=== PATIENT | male | born 1980 | race African-American/Black ===

== ENCOUNTER 2023-10-12 19:57 | Inpatient (IN) | payer MEDICAID, OTHER ==
[~2023-10-12] VITALS: Ht 180.3 cm; Wt 146.9 kg
[2023-10-12] MEDS ORDERED: cloNIDine HCL 0.1 MG TAB PO ONE (20:45)
[2023-10-12 21:09] LABS: Basophils # (auto) 0.1 10 ^3/uL (0-0.2); Basophils % (auto) 0.7 % (0.0-2.0); Eosinophils # (auto) 0.2 10 ^3/uL (0-0.8); Eosinophils % (auto) 2.3 % (0.0-7.0); Hematocrit 41.8 % (41.0-53.0); Hemoglobin 13.4 g/dL (13.5-17.5); Lymphocytes # (auto) 3.5 10 ^3/uL (0.4-5.4); Mean Corpuscular Hemoglobin 25.3 pg (28.0-32.0); Mean Corpuscular Volume 78.9 fL (80.0-100.0); Monocytes # (auto) 0.8 10 ^3/uL (0-1.3); Monocytes % (auto) 10.5 % (0.0-12.0); Neutrophils # (auto) 3.2 10 ^3/uL (1.6-8.6); Neutrophils % (auto) 41.5 % (37.0-80.0); Nucleated Red Blood Cells % 0.1 %; Red Cell Distribution Width 17.1 % (11.8-14.3); White Blood Cell 7.7 10^3/uL (4.4-10.8)
[2023-10-12 21:29] LABS: Alanine Aminotransferase 35 U/L (7-40); Albumin 4.3 g/dL (3.2-4.8); Alkaline Phosphatase 54 U/L (46-116); Anion Gap 9 (5-15); Aspartate Aminotransferase 20 U/L (13-40); BUN/Creatinine Ratio 11.9 (10.0-20.0); Blood Urea Nitrogen 18 mg/dL (9-23); Calcium 9.2 mg/dL (8.7-10.4); Carbon Dioxide 22 mmol/L (20-30); Chloride 107 mmol/L (98-107); Glucose 111 mg/dL (74-106); Lipase 58 U/L (12-53); Potassium 3.7 mmol/L (3.5-5.1); Sodium 138 mmol/L (136-145)
[2023-10-12 21:30] LABS: Bilirubin, Total 0.5 mg/dL (0.2-1.0); Total Protein 7.3 g/dL (5.7-8.2)
[2023-10-12 22:12] LABS: Urine Bacteria NONE SEEN /hpf (None Seen); Urine Blood Negative /uL (Negative); Urine Clarity Clear (Clear); Urine Color Colorless (Yellow); Urine Hyaline Cast FEW /lpf (0 - 2); Urine Protein, UAD 1+ (Negative); Urine Specific Gravity 1.018 (1.001-1.035); Urine Urobilinogen Normal (Negative); Urine WBC 2 /hpf (0 - 3); Urine pH 5.5 (5.0-8.0)
[2023-10-12] MEDS ORDERED: ENOXAPARIN SOD 40 MG/0.4 ML SYRINGE SC ONE (23:30)
[2023-10-12 23:45] VITALS: PULSE 98; RESP 24; O2SAT 96
[2023-10-13] MEDS ORDERED: FUROSEMIDE 40 MG/4 ML VIAL IV ONE (01:00)
[2023-10-13] MEDS ORDERED: METOPROLOL TARTRATE 1MG/1ML-5ML VIAL IV ONE (01:00)
[2023-10-13] MEDS ORDERED: NITROGLYCERIN 0.4 MG SL TAB SL PRN (03:45)
[2023-10-13] MEDS ORDERED: MORPHINE SULFATE INJ 2 MG/ml SYRG IV PRN (03:45)
[2023-10-13] MEDS ORDERED: ONDANSETRON HCL 4 MG/2 ML VIAL IV PRN (03:45)
[2023-10-13] MEDS ORDERED: ACETAMINOPHEN 325 MG TAB PO PRN (03:45)
[2023-10-13] MEDS ORDERED: IOHEXOL 350 MG/ML 100ML IJ ONE ×2 (03:52→07:10)
[2023-10-13 07:50] VITALS: PULSE 91; RESP 22; O2SAT 97
[2023-10-13] MEDS ORDERED: ASPirin 81 mg TAB PO SCH (10:00)
[2023-10-13] MEDS ORDERED: ENOXAPARIN SOD 100 MG/1 ML SYRINGE SC SCH (10:00)
[2023-10-13] MEDS: APIXABAN 5 MG TAB PO SCH ×2 (10:14→21:14)
[2023-10-13] MEDS: CARVEDILOL 12.5 MG TAB PO SCH ×2 (10:15→21:16)
[2023-10-13] MEDS: hydrALAZINE HCL 25 MG TAB PO SCH ×2 (14:47→21:16)
[2023-10-13] MEDS ORDERED: RIVAROXABAN 15 MG TAB PO SCH (18:00)
[2023-10-13] MEDS: FUROSEMIDE 40 MG TAB PO SCH (18:11)
[2023-10-13 19:40] VITALS: PULSE 99; RESP 22; O2SAT 97
[2023-10-14 03:28] LABS: Amphetamine Screen, Urine Neg (NEGATIVE); Benzodiazephine Screen, Urine Neg (NEGATIVE)
[2023-10-14 03:29] LABS: Barbiturate Scree,Urine Neg (NEGATIVE)
[2023-10-14 03:30] LABS: Cannabinoid Screen, Urine Neg (NEGATIVE); Cocaine Screen, Urine Neg (NEGATIVE); Opiate Scree,Urine Neg (NEGATIVE); Phencyclidine Screen, Urine Neg (NEGATIVE)
[2023-10-14 06:10] LABS: Basophils # (auto) 0 10 ^3/uL (0-0.2); Eosinophils # (auto) 0.1 10 ^3/uL (0-0.8); Lymphocytes # (auto) 2.4 10 ^3/uL (0.4-5.4); Monocytes # (auto) 0.5 10 ^3/uL (0-1.3); Neutrophils # (auto) 1.8 10 ^3/uL (1.6-8.6); Nucleated Red Blood Cells % 0.1 %; Red Blood Cells 5.37 10^6/uL (4.5-5.90); White Blood Cell 4.9 10^3/uL (4.4-10.8)
[2023-10-14 06:12] LABS: Basophils % (auto) 0.7 % (0.0-2.0); Hemoglobin 13.6 g/dL (13.5-17.5); Mean Corpuscular Hemoglobin 25.3 pg (28.0-32.0); Mean Corpuscular Hgb Conc. 32.3 g/dL (32.0-36.0); Mean Corpuscular Volume 78.2 fL (80.0-100.0); Monocytes % (auto) 10.6 % (0.0-12.0); Neutrophils % (auto) 37.7 % (37.0-80.0); Red Cell Distribution Width 17.3 % (11.8-14.3)
[2023-10-14] MEDS: FUROSEMIDE 40 MG TAB PO SCH ×2 (06:26→18:30)
[2023-10-14] MEDS: hydrALAZINE HCL 25 MG TAB PO SCH ×3 (06:27→22:27)
[2023-10-14 06:29] LABS: Alanine Aminotransferase 28 U/L (7-40); Albumin 4.1 g/dL (3.2-4.8); Alkaline Phosphatase 52 U/L (46-116); Anion Gap 10 (5-15); Aspartate Aminotransferase 17 U/L (13-40); BUN/Creatinine Ratio 13.6 (10.0-20.0); Blood Urea Nitrogen 17 mg/dL (9-23); Calcium 9.4 mg/dL (8.5-10.1); Carbon Dioxide 25 mmol/L (20-30); Chloride 104 mmol/L (98-107); Glucose 133 mg/dL (74-106); Potassium 3.6 mmol/L (3.5-5.1); Sodium 139 mmol/L (136-145)
[2023-10-14 06:30] LABS: Bilirubin, Total 0.5 mg/dL (0.2-1.0)
[2023-10-14 08:00] VITALS: PULSE 95; PULSE 97; RESP 21; O2SAT 96
[2023-10-14] MEDS: APIXABAN 5 MG TAB PO SCH ×2 (09:48→22:25)
[2023-10-14] MEDS: CARVEDILOL 12.5 MG TAB PO SCH ×2 (09:49→22:27)
[2023-10-14 09:52] VITALS: BP 135/80; PULSE 79; RESP 19; TEMP 98.6; O2SAT 97
[2023-10-14 12:12] VITALS: BP 169/115; PULSE 88; RESP 18; TEMP 98.2; O2SAT 100
[2023-10-14] MEDS ORDERED: HYDR-4296 PO (15:16)
[2023-10-14] MEDS ORDERED: CARV12.544 PO (15:18)
[2023-10-14] MEDS ORDERED: FURO40TA4 PO (15:18)
[2023-10-14 16:46] VITALS: BP 154/91; PULSE 95; RESP 19; TEMP 97.7; O2SAT 98
[2023-10-14] MEDS: cloNIDine HCL 0.1 MG TAB PO PRN (18:31)
[2023-10-14 20:00] VITALS: PULSE 95
[2023-10-14 22:00] VITALS: BP 149/93; PULSE 72; RESP 17; TEMP 97.6; O2SAT 95
[2023-10-15 05:00] VITALS: BP 139/92; PULSE 89; RESP 19; TEMP 97.8; O2SAT 95
[2023-10-15] MEDS: FUROSEMIDE 40 MG TAB PO SCH (06:26)
[2023-10-15] MEDS: hydrALAZINE HCL 25 MG TAB PO SCH ×2 (06:27→15:34)
[2023-10-15 08:00] VITALS: PULSE 89; RESP 19
[2023-10-15] MEDS ORDERED: NIFE1TAB30 PO (08:50)
[2023-10-15] MEDS ORDERED: CAR125T PO (08:50)
[2023-10-15] MEDS ORDERED: APIX5TAB PO (08:50)
[2023-10-15] MEDS ORDERED: HYDR25TA87 PO (08:50)
[2023-10-15] MEDS ORDERED: FURO1TAB31 PO (08:50)
[2023-10-15 09:00] VITALS: BP 154/107; PULSE 91; RESP 16; TEMP 98.5; O2SAT 100
[2023-10-15 10:34] VITALS: BP 116/76; PULSE 91; RESP 16; TEMP 98.5; O2SAT 100
[2023-10-15] MEDS: APIXABAN 5 MG TAB PO SCH (12:12)
[2023-10-15] MEDS: CARVEDILOL 12.5 MG TAB PO SCH (12:12)
[2023-10-15 13:00] VITALS: BP 168/115; PULSE 95; RESP 16; TEMP 98.3; O2SAT 98
[2023-10-15] MEDS: cloNIDine HCL 0.1 MG TAB PO PRN (16:38)
[2023-10-20] MEDS ORDERED: APIXABAN 5 MG TAB PO SCH (10:00)
== END 2023-10-15 17:20 | disposition home or self-care (01) | DRG 199 ==
LOC: ER 19:57 → TELE 10-13 03:45 → TELE-CENTR 10-14 10:11
PROVIDERS: ADMIT Nurse Practitioner; ATTEND Family Medicine
DX: I16.0 Hypertensive urgency (principal); I26.99 Other pulmonary embolism without acute cor pulmonale; I50.23 Acute on chronic systolic (congestive) heart failure; I82.432 Acute embolism and thrombosis of left popliteal vein; I13.0 Hypertensive heart and chronic kidney disease with heart failure and stage 1 through stage 4 chronic kidney disease, or unspecified chronic kidney disease; E66.01 Morbid (severe) obesity due to excess calories; N18.9 Chronic kidney disease, unspecified; Z87.891 Personal history of nicotine dependence; Z91.199 Patient's noncompliance with other medical treatment and regimen due to unspecified reason; Z71.6 Tobacco abuse counseling
CPT/HCPCS: 36415; 71275; 80053; 80307; 81001; 83605; 83690; 83880; 84484; 85025; 93005; 93306; 93971; 96372; 96374; 96375; G0378